=== PATIENT | female | born 1995 | race Caucasian/White ===

== ENCOUNTER → 2016-12-01 | Day surgery (SDC) | payer OTHER ==
[~2016-12-01] MED LIST: ALBU6.7H INH; BUPIVACAINE HCL PF 0.75% 30 ML VIAL ONE; EPINEPHrine HCL (1:1000) 30 MG/30 ML VIAL ONE; KETOROLAC TROMETHAMINE 30 MG/ML (IVP) VIAL IV PUSH ONE; LACTATED RINGER'S 1000 ML INJ 1,000 ML ONE; LIDOCAINE 1%/EPINEPHrine 1:100,000 SOLN 30 ML VIAL ONE; LIDOCAINE 1.5%/EPINEPHrine 1:200,000 PF SOLN 30 ML AMP ONE; MIDAZOLAM HCL 5 MG/ML VIAL (1 ML) ONE; ONDANSETRON HCL 4 MG/2 ML VIAL IV PUSH ONE; PROPOFOL 200 MG/20 ML AMP IV ONE; SODIUM CHLORIDE 0.9% INJ 10 ML ONE; ceFAZolin 2 GM PREMIX 50 ML ONE; ceFAZolin INJ 1,000 MG VIAL ONE; oxyCODONE/ACETAMINOPHEN 5 MG/325 MG TAB ONE
--- NOTE | 2016-12-01 10:25 | MP ---
cc: RADHA BRITT M.D. DATE OF SURGERY: 12/01/2016 PREOPERATIVE DIAGNOSIS Left knee complete anterior cruciate ligament rupture and lateral meniscus tear. POSTOPERATIVE DIAGNOSIS Left knee complete anterior cruciate ligament rupture and lateral meniscus tear. PROCEDURE Left knee arthroscopic anterior cruciate ligament reconstruction with posterior tibialis allograft and arthroscopic partial lateral meniscectomy. ANESTHESIA Femoral block and general. SURGEON Radha Britt MD [employer]SEM[employer]ER SURGEON MARION Arreola The clinic assistant MARION Arreola is an advanced registered nurse practitioner. His skill set is medically necessary for the performance of this operation. ESTIMATED BLOOD LOSS Minimal. SPECIMEN None. COMPLICATIONS None known. INDICATION Neha Trujillo is a 21-year-old female with ACL insufficiency and a lateral meniscus tear with significant symptomatology. She now presents for surgical intervention. The risks and benefits were thoroughly discussed and a very thorough discussion with graft choice with her decision made to proceed with allograft. The importance of compliance with post-op rehab was discussed. All of her questions were answered. A detailed informed consent was obtained. This morning I reviewed the consent again with the patient and the patient's mother present as well, and again reviewed graft choices and they are all in agreement to proceed in this fashion. DETAILS OF PROCEDURE The patient was brought to the operating room after she was given a femoral block. She was then placed under general anesthetic. The left lower extremity is draped and prepped in the usual sterile fashion. IV antibiotics are given. A timeout is completed. We did do a physical examination which showed 2+ Elba and pivot shift. We thawed the allograft on the back table and prepared this. The graft measurements were 9.5, but actually was able to fit on the socket side into an 8.5, but then the full diameter need to pull through a 9.5 so on the femoral tunnel side the socket was made with an 8.5 graft acorn-tip reamer, and on the tibial side a 9.5. We proceeded then with inferolateral portal and a blunt trocar was used to introduce the cannula. The knee was insufflated with saline. The patellofemoral joint appeared normal. The notch showed a complete ACL absence and this was photographed. We visualized and palpated the medial compartment which appeared normal. The lateral compartment showed a tear at the junction of the body in the posterior horn of the lateral meniscus which represented 50% depth of meniscus. This with a complex radial-type tear. Additionally, there was tearing at the root of the meniscus which was also 50& and maybe slightly more, maybe 60% the depth of meniscus. With the knee in a figure-four position we proceeded with arthroscopic partial lateral meniscectomy using a combination of basket forceps and arthroscopic shaver, switched over switching stick to fine tune and smooth, and then did our follow-up photograph. We then moved into the notch we had electrocautery and we did a notchplasty removing 1-2 mm of bone on the lateral edge of the notch, identifying the [id number] position using a 6 mm offset guide to the tibial tunnel to place our Beath needle and then overreamed this with the EndoButton reamer and then an 8.5 reamer and then placed our #[address]. We then used the Acufex gold guide and a separate incision for making a tunnel to come out at the footprint of the ACL on the tibial side and then overreamed this with a 9.5 and then took our measurements and tied off the EndoButton at the appropriate length. We then pulled this into place and locked it on the femoral side with excellent range of motion and fixation. We then fixated on the tibial side with the knee in full extension with the bio interference screw 9 x 30 mm. Final x-rays of the knee in mid flexion and full extension showed the final result. Repeat diagnostic arthroscopy revealed no loose bodies. The arthroscopic equipment was removed. We closed with absorbable sutures. Steri-Strips applied. Sterile dressing applied. Lan wrap applied from the foot to the thigh. Knee brace applied. The patient awoke and returned to the recovery room in stable condition. MD OCHOA Lopez/JESS /9:14 AM /10:07 AM
== END | disposition home or self-care (01) ==
LOC: ESDC 06:04
PROVIDERS: ATTEND Orthopaedic Surgery Sports Medicine
DX: S83.512A Sprain of anterior cruciate ligament of left knee, initial encounter (principal); S83.272A Complex tear of lateral meniscus, current injury, left knee, initial encounter
CPT/HCPCS: 01400; 01991; 29881; 29888; 64447; C1713; J0171; J0690; J1885; J2250; J2405; J3010; J7120